=== PATIENT | female | born 1975 | race Caucasian/White ===

== ENCOUNTER 2018-04-11 10:30 | Outpatient (CLI) | payer OTHER | END 2018-04-11 16:00 | disposition home or self-care (01) | LOC: MRI 10:30 | DX: M54.2 Cervicalgia (principal); M54.12 Radiculopathy, cervical region ==

== ENCOUNTER → 2018-04-11 | Outpatient (CLI) | payer OTHER | END | disposition home or self-care (01) | LOC: LAB 08:55 | DX: R55 Syncope and collapse (principal); R51 Headache ==

== ENCOUNTER 2018-08-29 14:43 | Outpatient (CLI) | payer OTHER | END 2018-08-29 14:46 | disposition home or self-care (01) | LOC: MAMO-SONO 14:43 | DX: Z12.31 Encounter for screening mammogram for malignant neoplasm of breast (principal) ==

== ENCOUNTER → 2018-08-29 15:32 | Outpatient (CLI) | payer OTHER | END | disposition home or self-care (01) | LOC: LAB 15:32 | DX: N95.8 Other specified menopausal and perimenopausal disorders (principal); R97.8 Other abnormal tumor markers ==

== ENCOUNTER → 2018-10-16 | Outpatient (CLI) | payer OTHER | END | disposition home or self-care (01) | LOC: RAD 11:42 | DX: I10 Essential (primary) hypertension (principal); M54.5 Low back pain; Z01.818 Encounter for other preprocedural examination ==

== ENCOUNTER 2018-10-17 16:14 | Inpatient (IN) | payer OTHER ==
[2018-10-22] MEDS ORDERED: XOPENEX0.63 MG/3 IH (13:40)
[2018-10-22] MEDS ORDERED: FERROUS SULFAT325 M1 PO (13:41)
[2018-10-22] MEDS ORDERED: DOCUSATE SODIU100 MG PO (13:42)
[2018-10-22] MEDS ORDERED: GAS RELIEF125 MG PO (13:42)
[2018-10-22] MEDS ORDERED: Pulmicort 0.5 MG/2 M IH (13:44)
[2018-10-22] MEDS ORDERED: IBUPROFEN800 MG PO (14:12)
== END 2018-10-22 14:27 | DRG 742 ==
LOC: OB/GYN 10-18 05:35 → O/R 10-18 05:35 → OB/GYN 10-18 15:42
PROVIDERS: Obstetrics & Gynecology; Urology
PROC: 0T9880Z Drainage of Bilateral Ureters with Drainage Device, Via Natural or Artificial Opening Endoscopic (ICD-10-PCS; 2018-10-18)
PROC: 0UT90ZL Resection of Uterus, Supracervical, Open Approach (ICD-10-PCS; principal; 2018-10-18 07:00)
PROC: 0UT50ZZ Resection of Right Fallopian Tube, Open Approach (ICD-10-PCS; 2018-10-18 07:00)
PROC: 3E0F7GC Introduction of Other Therapeutic Substance into Respiratory Tract, Via Natural or Artificial Opening (ICD-10-PCS; 2018-10-20)
PROC: 30233N1 Transfusion of Nonautologous Red Blood Cells into Peripheral Vein, Percutaneous Approach (ICD-10-PCS; 2018-10-21)
PROC: 4A033R1 Measurement of Arterial Saturation, Peripheral, Percutaneous Approach (ICD-10-PCS; 2018-10-21)
DX: D25.1 Intramural leiomyoma of uterus (principal); J45.31 Mild persistent asthma with (acute) exacerbation; D25.0 Submucous leiomyoma of uterus; N80.0 Endometriosis of uterus; N83.8 Other noninflammatory disorders of ovary, fallopian tube and broad ligament; N92.0 Excessive and frequent menstruation with regular cycle; D64.89 Other specified anemias